=== PATIENT | male | born 1975 | race Caucasian/White ===

== ENCOUNTER 2018-04-06 20:22 | Emergency (ER) | payer OTHER ==
[~2018-04-06] VITALS: Ht 180.3 cm; Wt 142.4 kg
[2018-04-06 20:51] VITALS: BP 160/115
[2018-04-06] MEDS ORDERED: KETOROLAC TROMETH 60MG/2ML VIAL IM ONE (22:45)
== END 2018-04-06 23:21 | disposition home or self-care (01) ==
LOC: ER 20:22
DX: S20.211A Contusion of right front wall of thorax, initial encounter (principal); S80.11XA Contusion of right lower leg, initial encounter; S90.31XA Contusion of right foot, initial encounter; V48.5XXA Car driver injured in noncollision transport accident in traffic accident, initial encounter; Y93.89 Activity, other specified; Y99.8 Other external cause status
CPT/HCPCS: 71101; 73590; 73630; 96372; 99284; J1885